=== PATIENT | female | born 1995 | race Caucasian/White ===

== ENCOUNTER 2017-05-08 05:40 | Emergency (ER) | payer OTHER ==
[~2017-05-08] VITALS: Ht 154.9 cm; Wt 96.9 kg
[~2017-05-08 05:40] MED LIST: AMBIEN10 MG PO; ATIVAN1 MG PO; BACTRIM,SEPT1 TABLET PO; BUSPAR15 MG PO; COLACE50 MG PO; EFFEXOR75 MG PO; ESCITALOPRAM OX20 MG PO; FLUOXETINE HCL40 MG PO; GABAPENTIN300 MG PO; LEXAPRO10 MG PO; LEXAPRO20 MG PO; LORAZEPAM PO; NOHOMEMEDS; OMEPRAZOLE40 M1 PO; OXCARBAZEPINE300 MG PO; PERCOCET 5/31 TABLET PO; PROMETHAZINE HC25 M1 PO; TRAMADOL HCL50 MG PO; TRILEPTAL600 MG PO; ULTRAM50 MG PO; ZANTAC150 MG PO; ZOLPIDEM TARTRAT5 MG PO
[2017-05-08 06:44] LABS: EOSINOPHIL (%) 0.5 % (0-5); EOSINOPHIL COUNT 0.1 K/uL (0-0.3); HEMATOCRIT 35.9 % (36.0-46.0); IMMATURE GRANULOCYTE (%) 0.4 % (0.0-0.7); IMMATURE GRANULOCYTE COUNT 0.1 K/uL; INSTRUMENT ABS NEUTROPHIL CT 7.3 K/uL; LYMPHOCYTE COUNT 3.1 K/uL (1.0-2.8); MCH 30.2 PG (29.0-34.0); MCHC 33.4 G/DL (30.0-36.0); MCV 90.4 FL (83-99); MEAN PLAT.VOLUME 9.4 uM^3 (9.5-12.4); MONOCYTE (%) 6.8 % (3-12); MONOCYTE COUNT 0.8 K/uL (0-0.8); NEUTROPHIL (%) 64.5 % (45-76); NEUTROPHIL COUNT 7.3 K/uL (1.8-6.4); PLATELET COUNT 344 K/uL (156-360); RBC DIS.WIDTH-CV 12.6 % (11.8-14.6); RBC DIS.WIDTH-SD 41.3 % (39-53); RED BLOOD COUNT 3.97 M/uL (3.80-5.20); WHITE BLOOD COUNT 11.4 K/uL (4.1-10.2)
[2017-05-08 07:22] LABS: QUANTITATIVE HCG < 4.0 MIU/ML
[2017-05-08] MEDS ORDERED: ZANAFLEX4 M1 PO (07:24)
[2017-05-08] MEDS ORDERED: LYRICA100 MG PO (07:24)
[2017-05-08] MEDS ORDERED: SEROQUEL100 MG PO (07:24)
[2017-05-08] MEDS ORDERED: PROZAC40 MG PO (07:25)
[2017-05-08] MEDS ORDERED: LISINOPRIL10 MG PO (07:25)
[2017-05-08] MEDS ORDERED: BELSOMRA20 MG PO (07:25)
[2017-05-08] MEDS ORDERED: OPANA ER40 MG PO (07:25)
[2017-05-08] MEDS ORDERED: PROMETHAZINE HC25 M1 PO (07:26)
[2017-05-08 07:39] LABS: ANION GAP 12 MEQ/L (2-14); CHLORIDE 106 MEQ/L (99-109); POTASSIUM 3.6 MEQ/L (3.7-5.4); SAMPLE HEMOLYSIS CHECK 0; SAMPLE ICTERIC CHECK 0; SAMPLE LIPEMIA CHECK 0; SODIUM 142 MEQ/L (136-147)
[2017-05-08 08:01] LABS: GFR ESTIMATE (CALCULATED) > 59 mL/min/; GLUCOSE 137 mg/dL (70-99); SERUM ETHYL ALCOHOL < 10 mg/dL; UREA NITROGEN (BUN) 11 mg/dL (9-23)
[2017-05-08] MEDS ORDERED: CATAPRES0.1 MG PO (08:27)
[2017-05-08] MEDS ORDERED: PROMETHAZINE HC50 M1 PO (08:27)
[2017-05-08] MEDS ORDERED: TRAZODONE HCL50 MG PO (08:27)
[2017-05-08 08:37] VITALS: BP 160/98
== END 2017-05-08 08:37 | disposition home or self-care (01) ==
LOC: EME → EDBD 05:40 → EME 05:40
PROVIDERS: Emergency Medicine
DX: F11.23 Opioid dependence with withdrawal (principal); R11.0 Nausea; F32.9 Major depressive disorder, single episode, unspecified; F41.9 Anxiety disorder, unspecified; E11.9 Type 2 diabetes mellitus without complications; J45.909 Unspecified asthma, uncomplicated; I10 Essential (primary) hypertension; M41.9 Scoliosis, unspecified; F17.200 Nicotine dependence, unspecified, uncomplicated; F12.10 Cannabis abuse, uncomplicated; Z91.5 Personal history of self-harm
CPT/HCPCS: 80048; 81003; 84702; 85025; 90839; 99281; 99284; G0480

== ENCOUNTER 2018-05-12 00:06 | Emergency (ER) | payer OTHER ==
[~2018-05-12] VITALS: Ht 154.9 cm; Wt 97.5 kg
[~2018-05-12 00:06] MED LIST changes: +BELSOMRA20 MG PO; +CATAPRES0.1 MG PO; +LISINOPRIL10 MG PO; +LYRICA100 MG PO; +OPANA ER40 MG PO; +PROMETHAZINE HC50 M1 PO; +PROZAC40 MG PO; +SEROQUEL100 MG PO; +TRAZODONE HCL50 MG PO; +ZANAFLEX4 M1 PO
[2018-05-12 01:10] LABS: APPEARANCE CLEAR ((CLEAR)); BILIRUBIN NEGATIVE; BLOOD NEGATIVE; COLOR AMBER ((YELLOW)); GLUCOSE (STRIP) NEGATIVE; KETONES NEGATIVE; LEUKOCYTES NEGATIVE; NITRITE POSITIVE; PROTEIN (STRIP) 30
[2018-05-12 01:16] LABS: BACTERIA NONE SEEN /HPF; EPITHELIAL CELLS RARE /HPF; MUCUS NONE SEEN /LPF; WHITE BLOOD CELLS TNTC /HPF (0-5)
[2018-05-12] MEDS ORDERED: KEFLEX500 MG PO (01:39)
[2018-05-12] MEDS ORDERED: PYRIDIUM200 MG PO (01:39)
[2018-05-12 01:58] VITALS: BP 141/94
== END 2018-05-12 01:59 | disposition home or self-care (01) ==
LOC: EME 00:06
DX: N39.0 Urinary tract infection, site not specified (principal); J45.909 Unspecified asthma, uncomplicated; F32.9 Major depressive disorder, single episode, unspecified; M41.9 Scoliosis, unspecified; F17.200 Nicotine dependence, unspecified, uncomplicated; Z87.440 Personal history of urinary (tract) infections
CPT/HCPCS: 81003; 99281; 99284